=== PATIENT | male | born 1965 | race Caucasian/White ===

== ENCOUNTER 2019-06-23 11:51 | Inpatient (IN) | payer MEDICAID ==
[~2019-06-23] VITALS: Ht 170.2 cm; Wt 36.3 kg
[~2019-06-23 11:51] MED LIST: ALBUTEROL2.5 MG/3 M INH
[2019-06-23] MEDS ORDERED: D5 1/2NS w/KCl 20mEq 1,000 ML IV SCH (12:00)
--- NOTE | 2019-06-23 12:00 | NUR ---
ER Nurse Note: Pt brought in by ambulance 26 from SNF c/o ALOC. Per nursing staff, pt is verbal, follows some commands, RA but is now is on 2L NC and does not follow commands since AM.
[2019-06-23] MEDS ORDERED: SUSTIVA600 MG ORAL (12:06)
[2019-06-23] MEDS ORDERED: BACTRIM DS TAB1 EAC1 ORAL (12:06)
[2019-06-23] MEDS ORDERED: SIMVASTATIN40 MG ORAL (12:06)
[2019-06-23] MEDS ORDERED: COLACE100 MG ORAL (12:06)
[2019-06-23] MEDS ORDERED: ENSURE LIQUID237 ML PO (12:06)
[2019-06-23] MEDS ORDERED: SENNA PLUS 8.61 EACH PO (12:06)
[2019-06-23] MEDS ORDERED: MULTIVITAMINS1 EAC8 ORAL (12:06)
[2019-06-23] MEDS ORDERED: EPIVIR150 MG ORAL (12:06)
[2019-06-23] MEDS ORDERED: ZITHROMAX250 MG ORAL (12:06)
[2019-06-23] MEDS ORDERED: CATAPRES0.1 MG ORAL (12:06)
[2019-06-23] MEDS ORDERED: MAALOX ADVANCE1 EACH PO (12:06)
[2019-06-23] MEDS ORDERED: ZIDOVUDINE300 MG ORAL (12:06)
--- NOTE | 2019-06-23 12:13 | Emergency Room Report ---
History of Present Illness General Chief Complaint: Altered Mental Status Source: Patient, Medical Record Present Illness HPI Patient is a 53-year-old male brought in by EMS after increased altered level of consciousness. He had prior history of HIV disease. 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 Was brought in for evaluation of altered mental status. Patient was sent in from [facility]. He was noted to have DNR status. Allergies: Coded Allergies: No Known Allergies (Unverified , 06/23/19) COVID-19 Screening Contact w/high risk pt: No Recent Travel to affected area: No Experienced COVID-19 symptoms?: No Patient History Past Medical History: see triage record Reviewed Nursing Documentation: PMH: Agreed; PSxH: Agreed Review of Systems All Other Systems: limited - by mental status Physical Exam Vital Signs Date Time Temp Pulse Resp B/P (MAP) Pulse Ox O2 Delivery O2 Flow Rate FiO2 06/23/19 11:42 95.9 92 18 117/80 (92) 95 Room Air General Appearance: alert, Chronically Ill ENT: hearing grossly normal, other - dry mucous membranes Neck: limited range of motion Respiratory: lungs clear, normal breath sounds Cardiovascular #1: normal inspection, normal peripheral pulses Gastrointestinal: normal inspection, soft Musculoskeletal: other - muscular atrophy, generalized weakness, no drift Neurologic: alert, safety 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 Differential diagnosis include was not limited to pneumonia, sepsis, electrolyte abnormality, urinary tract infection, dehydration among others. Because of complexity of patient's case laboratory tests and imaging studies were ordered. Patient was noted to be markedly cachectic and per patient's paperwork is DNR, DNI. Reportedly he is to be hospitalized if IV fluids are necessary. Patient appears to be somewhat dehydrated and was started on IV fluids. Dr. Jorge العلي will be contacted for inpatient rehydration due to panel physician Labs Test 06/23/19 12:30 06/23/19 13:15 White Blood Count 16.5 K/UL (4.8-10.8) Red Blood Count 3.82 M/UL (4.70-6.10) Hemoglobin 14.4 G/DL (14.2-18.0) Hematocrit 41.1 % (42.0-52.0) Mean Corpuscular Volume 108 FL (80-99) Mean Corpuscular Hemoglobin 37.6 PG (27.0-31.0) Mean Corpuscular Hemoglobin Concent 34.9 G/DL (32.0-36.0) Red Cell Distribution Width 13.6 % (11.6-14.8) Platelet Count 316 K/UL (150-450) Mean Platelet Volume 4.6 FL (6.5-10.1) Neutrophils (%) (Auto) % (45.0-75.0) Lymphocytes (%) (Auto) % (20.0-45.0) Monocytes (%) (Auto) % (1.0-10.0) Eosinophils (%) (Auto) % (0.0-3.0) Basophils (%) (Auto) % (0.0-2.0) Sodium Level 165 MMOL/L (136-145) Potassium Level 4.5 MMOL/L (3.5-5.1) Chloride Level 122 MMOL/L (98-107) Carbon Dioxide Level 25 MMOL/L (21-32) Anion Gap 17 mmol/L (5-15) Blood Urea Nitrogen 164 mg/dL (7-18) Creatinine 1.6 MG/DL (0.55-1.30) Estimat Glomerular Filtration Rate 45.1 mL/min (>60) Glucose Level 58 MG/DL (74-106) Calcium Level 8.5 MG/DL (8.5-10.1) Total Bilirubin 0.3 MG/DL (0.2-1.0) Aspartate Amino Transf (AST/SGOT) 127 U/L (15-37) Alanine Aminotransferase (ALT/SGPT) 114 U/L (12-78) Alkaline Phosphatase 162 U/L (46-116) Total Protein 8.9 G/DL (6.4-8.2) Albumin 3.0 G/DL (3.4-5.0) Globulin 5.9 g/dL Albumin/Globulin Ratio 0.5 (1.0-2.7) EKG Diagnostic Results Rate: normal Rhythm: NSR ST Segments: no acute changes Last Vital Signs Date Time Temp Pulse Resp B/P (MAP) Pulse Ox O2 Delivery O2 Flow Rate FiO2 06/23/19 11:42 95.9 92 18 117/80 (57) 95 Room Air Status: unchanged Condition: Stable Satnam Boswell MD Jun 23, 2019 12:13
[2019-06-23] MEDS ORDERED: Folic Acid 1 MG, Magnesium Sulfate 2,000 MG, Multivitamin - 12 Injection 10 ML, Thiamin... IV ONE ×5 (12:15)
[2019-06-23] MEDS ORDERED: cefTRIAXone 1 GM in NS 55 ML IVPB ONE (12:15)
[2019-06-23 12:23] VITALS: BP 117/80
--- NOTE | 2019-06-23 12:34 | NUR ---
ER Nurse Note: Per ER MD, order for Banana Bag canceled. Spoke with pharmacy to cancel the order.
--- NOTE | 2019-06-23 12:50 | NUR ---
ED Nurse Note: Patient taken to CT in [facility].
[2019-06-23 13:12] LABS: HEMATOCRIT 41.1 % (42.0-52.0); HEMOGLOBIN 14.4 G/DL (14.2-18.0); MEAN CORPUSCULAR VOLUME 108 FL (80-99); PLATELET COUNT 316 K/UL (150-450); RED BLOOD COUNT 3.82 M/UL (4.70-6.10); RED CELL DISTRIBUTION WIDTH 13.6 % (11.6-14.8); WHITE BLOOD COUNT 16.5 K/UL (4.8-10.8)
[2019-06-23 13:21] LABS: ALANINE AMINOTRANSFERASE 114 U/L (12-78); ALBUMIN/GLOBULIN RATIO 0.5 (1.0-2.7); ALKALINE PHOSPHATASE 162 U/L (46-116); ANION GAP 17 mmol/L (5-15); ASPARTATE AMINO TRANSFERASE 127 U/L (15-37); BILIRUBIN,TOTAL 0.3 MG/DL (0.2-1.0); BLOOD UREA NITROGEN 164 mg/dL (7-18); CALCIUM 8.5 MG/DL (8.5-10.1); CARBON DIOXIDE 25 MMOL/L (21-32); CHLORIDE 122 MMOL/L (98-107); CREATININE 1.6 MG/DL (0.55-1.30); POTASSIUM 4.5 MMOL/L (3.5-5.1)
[2019-06-23 13:22] LABS: SODIUM 165 MMOL/L (136-145)
[2019-06-23 13:23] LABS: APPEARANCE,URINE SLIGHTLY CLOUDY; BILIRUBIN, URINE NEGATIVE (NEGATIVE); COLOR,URINE PALE YELLOW; GLUCOSE, URINE (UA) NEGATIVE (NEGATIVE); KETONES,URINE NEGATIVE (NEGATIVE); LEUKOCYTE ESTERASE ,URINE NEGATIVE (NEGATIVE); NITRITE,URINE NEGATIVE (NEGATIVE); PH,URINE 5 (4.5-8.0); PROTEIN,URINE NEGATIVE (NEGATIVE); UROBILINOGEN,URINE NORMAL MG/DL (0.0-1.0)
--- NOTE | 2019-06-23 13:31 | Diagnostic Imaging Report ---
Indications: Altered level of consciousness Technique: Spiral acquisitions obtained through the brain. Angled axial and coronal 5 x 5 mm slices were reconstructed. Total dose length product 938 mGycm. CTDI vol(s) 53 mGy. Dose reduction achieved using automated exposure control Comparison: None. Findings: There is marked cerebral cortical and central volume loss. There is periventricular deep white matter low-attenuation. Otherwise normal mensah-white differentiation. No acute intracranial hemorrhage or edema. No mass effect nor midline shift. There is atrophy and calcification of the right optic globe and lens. The calvarium is intact. Visualized sinuses are unremarkable. The mastoids are clear. Impression: Marked involutional changes, advanced for age, as described. Negative for acute intracranial bleed or mass effect Atrophy and calcification of the right optic globe The CT scanner at [facility] is accredited by the [employer] and the scans are performed using protocols designed to limit radiation exposure to as low as reasonably achievable to attain images of sufficient resolution adequate for diagnostic evaluation.
--- NOTE | 2019-06-23 13:34 | Diagnostic Imaging Report ---
Indication: Shortness of Technique: One view of the chest Comparison: none Findings: Definite acute infiltrates, effusions, or congestion. Normal heart size. There is an old healed fracture deformity of the left posterior seventh rib. There is considerable bowel gas Impression: No acute process
[2019-06-23 13:41] VITALS: BP 116/76
--- NOTE | 2019-06-23 13:43 | NUR ---
ER Nurse Note: Urine and blood sent; no signs of distress. Pt infusing fluid and antibiotics. Pt follows commands, non verbal. Pt on 4L NC at 96% O2, VSS. Skin dry and cracked, pt is contracted. Pt incontenent. All safety measures met; will continue to montior.
[2019-06-23] MEDS ORDERED: Folic Acid 1 MG, Magnesium Sulfate 2,000 MG, Multivitamin - 12 Injection 10 ML in Sodiu... IV ONE (14:00)
[2019-06-23 15:36] VITALS: BP 120/58
--- NOTE | 2019-06-23 15:39 | NUR ---
ER Nurse Note: Second IV established; repeat CMP drawn and sent to lab. LT AC 22 gauge infusing D5 1/5 NS with K. Pt on 4L NC, VSS. No signs of distress. Skin breakdown noted on LT hip; pictures taken. CRE, VRE, MRSA swabs completed. Pt kept clean and dry. All orders competed per ERMD orders. Per ERMD, Banana Bag not administered. All safety measures met; will continue to montior.
--- NOTE | 2019-06-23 16:44 | NUR ---
ER Nurse Note: Gave report to JANE Wilcox in [place] for continuity of care.
--- NOTE | 2019-06-23 16:45 | NUR ---
NURSE NOTES: received report from JANIA/JANE Dixon.
[2019-06-23 16:46] VITALS: BP 102/64
[2019-06-23 16:56] LABS: ALANINE AMINOTRANSFERASE 103 U/L (12-78); ALBUMIN 2.6 G/DL (3.4-5.0); ALBUMIN/GLOBULIN RATIO 0.5 (1.0-2.7); ALKALINE PHOSPHATASE 143 U/L (46-116); ANION GAP 16 mmol/L (5-15); ASPARTATE AMINO TRANSFERASE 113 U/L (15-37); BILIRUBIN,TOTAL 0.2 MG/DL (0.2-1.0); BLOOD UREA NITROGEN 188 mg/dL (7-18); CALCIUM 7.8 MG/DL (8.5-10.1); CARBON DIOXIDE 25 MMOL/L (21-32); CHLORIDE 121 MMOL/L (98-107); CREATININE 1.7 MG/DL (0.55-1.30); POTASSIUM 5.1 MMOL/L (3.5-5.1)
[2019-06-23 16:58] LABS: SODIUM 161 MMOL/L (136-145)
--- NOTE | 2019-06-23 17:00 | NUR ---
NURSE NOTES: patient was admitted to room 402-[address] Severiano wheeler. patient alert. limited verbal communication. follow command.no respiratory distress noted on 4L via NC. no facial grimacing during care. IV on LAC 22g and RFA 18g intact. running D51/2ns kcl @100/hr. incontinent. skin assessment done. Lt hip redness. severe dry skin on general body. bed in the lowest position and locked. call light within reach. alarm on. will continue to provide plan of care.
--- NOTE | 2019-06-23 18:14 | History and Physical Report ---
DATE OF ADMISSION: 06/23/2019 CHIEF COMPLAINT AND REASON FOR HOSPITALIZATION: The patient is admitted from the [facility] with severe dehydration and hypernatremia. HISTORY OF PRESENT ILLNESS: The patient unable to provide history. He had severe HIV, eating and drinking poorly. Apparently, there was a hospice. The patient came for severe dehydration and lethargy. He is unable to provide history. MEDICATIONS: From the [facility] include albuterol inhalation p.r.n., Bactrim DS daily, Catapres 0.1 every 6 hours p.r.n., Colace 100 mg daily, Diflucan 200 mg daily for 7 days and apparently completed, Dulcolax suppository p.r.n., Epivir 150 every 12 hours, Fleet Enema p.r.n., Maalox p.r.n., milk of magnesia p.r.n., multivitamin with mineral daily, senna two tablets at bedtime, Sustiva 600 mg at bedtime, Tylenol p.r.n., zidovudine 300 mg two times a day, Zithromax 300 mg on Friday and only, Zocor 40 mg at bedtime. SYSTEM REVIEW: The patient is unable. PHYSICAL EXAMINATION: GENERAL: The patient is seen in the ER. He is severely cachetic. VITAL SIGNS: Temperature 96.3, pulse 63, respirations 14, blood pressure 116/76, pulse oximetry 96%. HEAD, EYES, EARS, NOSE, AND THROAT: There is frontal wasting. Sclerae nonicteric. Oral mucosa dry. NECK: No adenopathy. LUNGS: Clear. HEART: Regular rhythm. No murmur. ABDOMEN: Soft. No organomegaly. EXTREMITIES: No edema. No severe muscle wasting. NEUROLOGIC: He is awake, not really talking. He pushes the examiner away, like he does not want to be bothered. He seems to be moving all extremities with no focal weakness. PERTINENT LABORATORY DATA: White count 16.5, hemoglobin is 14.4. Sodium 165, potassium 4.5, BUN 164, creatinine 1.6, glucose 58. Lactic acid 1.1. Elevated liver enzymes. Troponin is normal. Urinalysis 0 to 2 white cells per high-power field. IMPRESSION: 1. Severe dehydration. 2. Severe protein-calorie malnutrition. 3. HIV. 4. DNR directive. PLAN: Hypotonic hydration. The patient has a poor prognosis. At this time, I do not know if there are any decision makers regarding hospice and further care. So, we will hydrate and try to get him back to the ECF. Jorge العلي M.D. DR: ALEX JOB#: [id number] CC:
--- NOTE | 2019-06-23 18:39 | NUR ---
NURSE NOTES: called Severiano Conley for admission order. MD will call back soon.
--- NOTE | 2019-06-23 19:40 | NUR ---
NURSE NOTES: Received patient in bed. Awake, nonverbal. No signs of pain noted at this time. On 4 lpm via NC. IV in the Right forearm and Left AC noted, intact. IVF infusing well. Sitting in semi-fowlers, bed rails up x2, bed locked, bed alarm on, ricco light within reach.
--- NOTE | 2019-06-23 19:45 | NUR ---
HAND-OFF: Report given to Sina Lockwood RN .
[2019-06-23 20:00] VITALS: BP 119/55
[2019-06-23] MEDS: D5 1/2NS w/KCl 20mEq 1,000 ML IV SCH (20:31)
[2019-06-24] VITALS: BP 103/72
[2019-06-24] MEDS: D5 1/2NS w/KCl 20mEq 1,000 ML IV SCH ×4 (01:51→20:22)
[2019-06-24 04:00] VITALS: BP 125/83
[2019-06-24 07:12] LABS: ANION GAP 14 mmol/L (5-15); CALCIUM 7.7 MG/DL (8.5-10.1); CARBON DIOXIDE 22 MMOL/L (21-32); CHLORIDE 124 MMOL/L (98-107); CREATININE 1.5 MG/DL (0.55-1.30); POTASSIUM 4.9 MMOL/L (3.5-5.1)
[2019-06-24 07:19] LABS: BLOOD UREA NITROGEN 182 mg/dL (7-18)
[2019-06-24 07:32] LABS: SODIUM 161 MMOL/L (136-145)
--- NOTE | 2019-06-24 07:43 | NUR ---
HAND-OFF: Report given to Rebekah LARA. Addendum: 06/24/19 at 0745 by Sina Lockwood RN Sodium level 161 endorsed to next shift JANE.
--- NOTE | 2019-06-24 07:54 | NUR ---
NURSE NOTES: Patient non-verbal; on Nasal cannula 4 Liters, no sing of distress and shortness of breath; no sing of chest pain; IV Right-Hand and Right For-Arm flushes well; side rails up x2, breaks engaged, bed at lowest position, bed alarm on; will keep monitoring.
[2019-06-24 08:00] VITALS: BP 112/72
--- NOTE | 2019-06-24 10:26 | NUR ---
RD ASSESSMENT & RECOMMENDATIONS SEE CARE ACTIVITY FOR COMPLETE ASSESSMENT DAILY ESTIMATED NEEDS: Needs based on Underweight, HIV, wound 34kg 30-40 kcals/kg 6860-4269 total kcals 1.25-2 g protein/kg 43-68 g total protein Fluid per MD NUTRITION DIAGNOSIS: Increased kcal and pro needs r/t underweight status, severe wasting , HIV as evidenced by BMI underweight per guidelines, pt is 50% of ideal body weight w/ full thickness L hip wound. CURRENT DIET: Npo pending [employer] eval PO DIET RECOMMENDATIONS---->>>> Liberalized REGULAR diet / texture per [employer] ADDITIONAL RECOMMENDATIONS: 1) W/ oral diet add ensure enlive tid w/ meals snacks in b/w meals 2) Wound care: add SALOME BID + vit C 250mg BID + MVI w/ min F/up w/ WC eval 3) Monitor hydration status, now on IVF -> Monitor renal labs, need for Nepro vs Ensure 4) Per POLST, no artificial feeds
[2019-06-24 12:00] VITALS: BP 119/69
--- NOTE | 2019-06-24 13:21 | General Progress Note ---
Progress Note Progress Note Bioethics Committee We are asked to comment on whether palliative care is appropriate for this 53 year old with cachexia and advanced AIDS. The patient has signed a POLST that indicates that he does not want artificial prolongation of life with CPR, ventilation, tube feeding. It is not co-signed by a physician. The patient who was admitted for dehydration requests transfer back to the SNF at this time. He is reported by social service coordinator to be competent to make that decisioin. Despite the lack of a physician signature on the POLST it appears that this patient has elected comfort care and that palliattive care approach is warranted and appropriate. Walt Lima M.D. Walt Lima MD Jun 24, 2019 13:20
--- NOTE | 2019-06-24 13:39 | General Progress Note ---
Assessment/Plan Problem List: (1) HIV (human immunodeficiency virus infection) ICD Codes: B20 - Human immunodeficiency virus [HIV] disease SNOMED: 37641858 (2) Severe malnutrition ICD Codes: E43 - Unspecified severe protein-calorie malnutrition SNOMED: 44841899 (3) Dehydration ICD Codes: E86.0 - Dehydration SNOMED: 43755616 (4) Hypernatremia ICD Codes: E87.0 - Hyperosmolality and hypernatremia SNOMED: 570279674 (5) Altered mental status ICD Codes: R41.82 - Altered mental status, unspecified SNOMED: 935275677 Status Narrative continue hydration Subjective ROS Limited/Unobtainable: Yes Allergies: Coded Allergies: No Known Allergies (Unverified , 06/23/19) Objective Last 24 Hour Vital Signs Date Time Temp Pulse Resp B/P (MAP) Pulse Ox O2 Delivery O2 Flow Rate FiO2 06/24/19 12:00 96.0 59 18 119/69 (86) 100 06/24/19 09:00 Nasal Cannula 4.0 06/24/19 08:00 97.0 60 17 112/72 (85) 100 06/24/19 04:00 98.8 63 14 125/83 (97) 98 06/24/19 00:00 98.4 65 18 103/72 (82) 98 06/23/19 21:00 Nasal Cannula 4.0 06/23/19 20:00 98.5 67 18 119/55 (76) 99 06/23/19 17:56 Nasal Cannula 4.0 06/23/19 16:50 97.3 70 16 102/64 96 Nasal Cannula 4.0 06/23/19 16:46 97.3 70 16 102/64 96 Nasal Cannula 4.0 06/23/19 15:36 97.5 75 16 120/58 97 Nasal Cannula 4.0 06/23/19 13:41 96.3 63 14 116/76 96 Nasal Cannula 4.0 Intake and Output 06/23/19 06/24/19 19:00 07:00 Intake Total 730 ml 1750 ml Balance 730 ml 1750 ml Intake IV Total 730 ml 1750 ml # Voids 1 3 Laboratory Tests 06/23/19 16:14: Sodium Level 161*H, Potassium Level 5.1, Chloride Level 121H, Carbon Dioxide Level 25, Anion Gap 16H, Blood Urea Nitrogen 188H, Creatinine 1.7H, Estimat Glomerular Filtration Rate 42.1, Glucose Level 185#H, Calcium Level 7.8L, Total Bilirubin 0.2, Aspartate Amino Transf (AST/SGOT) 113H, Alanine Aminotransferase (ALT/SGPT) 103H, Alkaline Phosphatase 143H, Total Protein 7.9, Albumin 2.6L, Globulin 5.3, Albumin/Globulin Ratio 0.5L 06/24/19 05:35: Sodium Level 161*H, Potassium Level 4.9, Chloride Level 124H, Carbon Dioxide Level 22, Anion Gap 14, Blood Urea Nitrogen 182H, Creatinine 1.5H, Estimat Glomerular Filtration Rate 48.6, Glucose Level 113H, Calcium Level 7.7L Height (Feet): 5 Height (Inches): 7.00 Weight (Pounds): 80 General Appearance: confused, cachetic EENT: other - frontal wasting Neck: normal alignment Cardiovascular: normal rate Respiratory/Chest: lungs clear Abdomen: non tender, soft Edema: no edema noted Arm (L), no edema noted Arm (R), no edema noted Leg (L), no edema noted Leg (R), no edema noted Pedal (L), no edema noted Pedal (R), no edema noted Generalized Skin: other - poor turgor Jorge العلي MD Jun 24, 2019 13:39
--- NOTE | 2019-06-24 14:03 | NUR ---
NOTES: REFERRED FOR SWALLOW EVALUATION BY DR NELSON, SEE FULL REPORT IN CARE ACTIVITY SECTION. DYSPHAGIA AND ASPIRATION RISK FACTORS FOR THIS 53 Y.O.M.: ACUTE ISSUES: SEVERE DEHYDRATION AND PROTEIN-CALORIE MALNUTRITION, REDUCED PO INTAKE, HYPERNATREMIA, R/O PNA (NEGATIVE ON CXR AND LUNGS CHECK) RESP RATE 17 BPM AND SP02 100 ON 4 LITERS OF 02 NC. AMS (CT HEAD SCAN 06/23/19 NEGATIVE ACUTE ISSUES, MARKED INVOLUTIONAL CHANGES,ADVANCED FOR AGE ATROPHY AND CALCIFICATION OF RIGHT OPTIC GLOBE. H/O DYSPHAGIA, PNEUMONIA, ADULT FTT AND CACHEXIA, DEMENTIA, HIV DZ, GENERAL WEAKNESS, PTOSIS RIGHT EYELID AND MONOCULAR ESOTROPIA,HYPERCHOLESTEROLEMIA RELEVANT MEDS: ALBUTEROL, HIV MEDS PER POLST,DNR AND NO TUBE FEEDINGS. [facility] SNF[facility] SO[facility] CHOP[facility] DI[facility] AND THIN LIQUIDS. NONFAT MILD 3 TIMES PER DAY FOR 3 MONTHS BETWEEN MEALS AND MAY GO OFF DIET ON SPECIAL OCCASIONS. SEEING ST FOR SKILLED SERVICES LIKELY REGARDING DYSPHAGIA. ALERT AND ABLE TO COMMUNICATE WITH HEAD NODS ? UNRELIABLE AT TIMES. VERY DYSARTHRIC AND DYSPHONIC (REDUCED AND POOR SPEECH INTELLIGIBILITY AND BREATHY VOICE REDUCED IN LOUDNESS). TRIES TO POINT WITH HIS RIGHT INDEX FINGER. ASSISTED WITH SETTING UP SUCTION WITH RN (AND GETTING EQUIPMENT ON OTHER FLOORS). INITIAL IMPRESSION: S/S OF A SIGNIFICANT ORAL PREP AND OROPHARYNGEAL DYSPHAGIA WITH INCREASED OVERALL TRANSIT TIMES WITH ALL CONSISTENCIES GIVEN (NECTAR THICK LIQUIDS, PUREED) VERY SLOW TONGUE MOVEMENTS WITH REDUCED PROTRUSION (TO LOWER LIP, NO ELEVATION) AND SPEED. VERY POOR RESISTANCE FOR STRENGTH TESTING. DID NOT RETRACT LIPS TO COMMAND, AND HAS POOR LIP CLOSURE WITH TSP (CUP NOT ATTEMPTED AND COULD NOT SUCK FROM STRAW). LOWER LIP TENDS TO PROTRUDE FORWARD AND DOWN WHICH CAUSES ORAL SPILLAGE. HAS POOR AND MISSING DENTITION AND AN UNDERBITE. COUGH WEAK (REFLEXIVE AND VOLITIONAL), VOICE BREATHY, SPEECH VERY DYSARTHRIC ON 4 LITERS 02 VIA NC, RESP RATE 14-18 AND SP02 98-100 STABLE WITH PO INTAKE. GIVEN TSP NECTAR THICK LIQUID WATER, HAD MIN ORAL SPILLAGE, TOOK 3-5 SECONDS TO SWALLOW, HAD POSSIBLE ASPIRATION, COUGHED AFTER SWALLOW (WEAK LARYNGEAL ELEVATION), MIN ORAL RESIDUE ANTERIOR SULCI. GIVEN 1/2 TSP NECTAR THICK LIQUIDS WATER, HAD MIN ORAL SPILLAGE ANTERIORLY, TOOK 3-5 SECONDS BEFORE SWALLOW TRIGGERED, NO OVERT ASPIRATION, NO ORAL RESIDUE. GIVEN 1/2 TSP PUREED TOOK 6-7 SECONDS BEFORE SWALLOW TRIGGERED, NO COUGH BUT NEEDED MILD AMOUNTS OF RESIDUE SUCTIONED OUT OF BACK OF THROAT AND BILATERAL CHEEKS. HIGH RISK FOR SILENT ASPIRATION AND VERY SLOW AND POOR INTAKE. RECOMMENDATIONS: CONSIDER COMPLETING A MODIFIED BARIUM SWALLOW STUDY (MBSS) TO FURTHER ASSESS SWALLOW,DETERMINE SILENT ASPIRATION RISK AND ETIOLOGY, AND ATTEMPT TRIAL TX TECNNIQUES. SINCE PATIENT'S POLST STATES NO TUBE FEEDINGS AND HE WANTS TO EAT/DRINK BY MOUTH FOR QUALITY OF LIFE PURPOSES, CONSIDER INITIATING A LIQUIFIED PUREED LIKE NECTAR THICK SOUP CONSISTENCY AND NECTAR THICK LIQUIDS (1/2 TSP ONLY) USING STRICT ASPIRATION PRECAUTIONS AND 1 TO [address] DIET TYPE JONE[address] SEND ENSURE ENLIVE TID UNTIL RD REPORT COMPLETED. CRUSH CRUSHABLE MEDS AND MAKE NECTAR THICK SOUP CONSISTENCY. SKILLED DYSPHAGIA MANAGEMENT AND TX AND COG-COM EVAL/TX FOR COMMUNICATION TIPS (GIVEN HIS SIGNIFICANT DYSPHONIA AND DYSARTHRIA). CONSIDER ENT CHECK VOCAL FOLDS (BREATHY VOICE QUALITY ? IF HE HAS A SMOKING HX). EDUCATED/TRAINED RN/TIRE SPOTTER IN POSTED ASPIRATION PRECAUTIONS. Addendum: 06/24/19 at 1407 by BEREKET KEITA ENTERPRISE APPLICATION ARCHITECT CORRECTION FROM ABOVE NOTE ON RD PER RD NOTE LIBERALIZE DIET TO REGULAR TYPE AND SEND GLUCERNA TID. PATIENT WAS ON JONE AT [facility] Addendum: 06/24/19 at 1409 by BEREKET KEITA ENTERPRISE APPLICATION ARCHITECT ORAL CARE AND SUCTION PRN DURING MEALS 03/25 TSP ONLY Addendum: 06/24/19 at 1412 by BEREKET KEITA ENTERPRISE APPLICATION ARCHITECT LUNGS CLEAR (NOT CHECK)
--- NOTE | 2019-06-24 14:37 | NUR ---
ANIMAL SCIENTIST NOTE SW received the bioethics consult for palliative care. SW met w/ pt and attempted to obtain information. Pt appears to be underweight, alert and very limited, almost non-verbal. SW spoke w/ SW Samantha from [facility] [phone] that pt has been staying at [facility] since 2001. Pt has been self-decision maker, no family contact information and his friends made a few visits while pt residing at SNF. Ada did not have friend's contact information. The copy of POLST is placed in the chart. POLST form was signed by pt on 06/15/2019. Pt reports he has two adult daughters named Aditi aged 29 and Jazmin, unknown age but younger than Aditi. Pt does not recall contact numbers but pt does not want this SW to contact his daughters in regards to his tx/care. SW was unable to find his daughters' contact information. Pt was able to nod his head, yes or no, and express himself in writing, that he wants to return [facility] today. SW explained pt that MD will need to clear him medically in order for him to return. Pt nodded. SW consulted and relayed all information to Dr. Lima.
[2019-06-24 16:00] VITALS: BP 113/73
--- NOTE | 2019-06-24 16:18 | NUR ---
CASE MANAGEMENT: INITIAL REVIEW 53YR OLD MALE BIBA FROM [facility] CC: AMS PMH: HIV, DEMENTIA, BLINDNESS, DNR STATUS SI:DEHYDRATION . HYPERNATREMIA . FELISHA . 95.9 92 18 117/80 95% ON RA WBC 16.5 NA+ 165 CL-122 ANION GAP 17 BUN 164 CREAT 1.6 BG 58 AST/ALT 127/114 ALKP 162 IS: IV ROCEPHIN X1 IV D5@100ML/HR X1 HEAT CT- Atrophy and calcification of the right optic globe; Marked involutional changes, advanced for age, CHEST X-RAY- NO ACUTE PROCESS \: 4E MED SURG UNIT DCP: [facility] CASE MANAGEMENT: REVIEW 06/24/19 SI:HIV . DEHYDRATION . HYPERNATREMIA . SEVERE MALNUTRITION 96.0 59 18 119/69 100% ON 4L NA+ 161 CL-124 BUN 182 CREAT 1.5 BG 113 IS: IV D5@75ML/HR \: 4E MED SURG UNIT DCP: [facility] PLAN: WEAN O2 START REG DIET SPEECH EVAL DNR STATUS
--- NOTE | 2019-06-24 19:27 | NUR ---
HAND-OFF: Report given to JANE Lockwood.
--- NOTE | 2019-06-24 19:30 | NUR ---
NURSE NOTES: Received patient in bed. Awake, Alert x1. Nonverbal, signals with hands to communicate. NC running at 4 lpm. IV in the Right upper arm intact, running IVF well. Sitting in high-fowlers, bed rails up x2, bed locked, bed at the lowest position, call light within reach.
[2019-06-24 20:00] VITALS: BP 123/67
[2019-06-25] VITALS: BP 123/67
[2019-06-25] MEDS: D5 1/2NS w/KCl 20mEq 1,000 ML IV SCH ×5 (00:36→23:32)
[2019-06-25 04:00] VITALS: BP 148/69
--- NOTE | 2019-06-25 07:00 | NUR ---
NURSE NOTES: Left message with Dr. العلي's office to report positive MRSA nares culture. Addendum: 06/25/19 at 0720 by Sina Lockwood RN Patient placed on contact isolation.
[2019-06-25 07:06] LABS: ANION GAP 10 mmol/L (5-15); BLOOD UREA NITROGEN 141 mg/dL (7-18); CALCIUM 7.3 MG/DL (8.5-10.1); CARBON DIOXIDE 23 MMOL/L (21-32); CHLORIDE 129 MMOL/L (98-107); CREATININE 1.2 MG/DL (0.55-1.30); POTASSIUM 4.4 MMOL/L (3.5-5.1)
--- NOTE | 2019-06-25 07:19 | NUR ---
HAND-OFF: Report given to Rebekah LARA. Endorsed on positive MRSA nares culture.
[2019-06-25 07:21] LABS: SODIUM 163 MMOL/L (136-145)
--- NOTE | 2019-06-25 07:44 | NUR ---
NURSE NOTES: Patient awake, alert x2; on Nasal Cannula 4 Liters, no sing of distress and shortness of breath; no sing of chest pain; IV line runs D51/2NS w/Kcl 20mEq 175cc running; side rials up x2, breaks engaged, bed at lowest position, bed alarm on; call light within reach; will keep monitoring;
[2019-06-25 08:00] VITALS: BP 106/73
--- NOTE | 2019-06-25 11:03 | NUR ---
NURSE NOTES: MD العلي is griffin of patient's Na 163 level and patient's positive for MRSA-Nares;
--- NOTE | 2019-06-25 11:28 | General Progress Note ---
Assessment/Plan Problem List: (1) HIV (human immunodeficiency virus infection) ICD Codes: B20 - Human immunodeficiency virus [HIV] disease SNOMED: 85035835 (2) Severe malnutrition ICD Codes: E43 - Unspecified severe protein-calorie malnutrition SNOMED: 89691945 (3) Dehydration ICD Codes: E86.0 - Dehydration SNOMED: 98482446 (4) Hypernatremia ICD Codes: E87.0 - Hyperosmolality and hypernatremia SNOMED: 751537205 (5) Altered mental status ICD Codes: R41.82 - Altered mental status, unspecified SNOMED: 929388528 Assessment/Plan: poor prognosis, hydrate Subjective ROS Limited/Unobtainable: Yes Allergies: Coded Allergies: No Known Allergies (Unverified , 06/23/19) Objective Last 24 Hour Vital Signs Date Time Temp Pulse Resp B/P (MAP) Pulse Ox O2 Delivery O2 Flow Rate FiO2 06/25/19 09:00 Nasal Cannula 4.0 06/25/19 08:00 98.9 83 17 106/73 (84) 96 06/25/19 04:00 98.4 65 20 148/69 (95) 97 06/25/19 00:00 97.4 64 20 123/67 (85) 99 06/24/19 21:00 Nasal Cannula 4.0 06/24/19 20:00 97.4 64 20 123/67 (85) 99 06/24/19 16:00 97.0 68 17 113/73 (86) 100 06/24/19 12:00 96.0 59 18 119/69 (86) 100 Intake and Output 06/24/19 06/25/19 19:00 07:00 Intake Total 1625 ml 2590 ml Balance 1625 ml 2590 ml Intake Oral 50 ml 840 ml IV Total 1575 ml 1750 ml # Voids 2 3 # Bowel Movements 2 Laboratory Tests 06/25/19 05:30: Sodium Level 163*H, Potassium Level 4.4, Chloride Level 129H, Carbon Dioxide Level 23, Anion Gap 10, Blood Urea Nitrogen 141H, Creatinine 1.2, Estimat Glomerular Filtration Rate > 60, Glucose Level 153H, Calcium Level 7.3L Height (Feet): 5 Height (Inches): 7.00 Weight (Pounds): 80 General Appearance: confused, cachetic EENT: other - frontal wasting, dry mouth Neck: normal alignment Cardiovascular: regular rhythm Respiratory/Chest: lungs clear Abdomen: non tender Edema: no edema noted Arm (L), no edema noted Arm (R), no edema noted Leg (L), no edema noted Leg (R), no edema noted Pedal (L), no edema noted Pedal (R), no edema noted Generalized Skin: other - t 2 sacral Jorge العلي MD Jun 25, 2019 11:27
--- NOTE | 2019-06-25 11:50 | NUR ---
*-*DISCHARGE PLANNING*-* PATIENT HAS BEEN REFERRED BACK: [facility] P: [phone] F: [phone] ~~~WAITING FOR ACCEPTANCE~~~~~
[2019-06-25 12:00] VITALS: BP 110/79
--- NOTE | 2019-06-25 12:20 | NUR ---
CASE MANAGEMENT:REVIEW SI;HIV. MALNUTRITION. ALTERED MENTAL STATUS. DEHYDRATION. HYPERNATREMIA. 98.9 83 20 148/63 96% 4L NC NA 163 BUN 141 CA 7.3 IS;IVF D5 @ 175 ML/HR MED SURG STATUS DCP;FROM [facility];ANTICIPATED DISCHARGE TO SNF ON 06/26/19
--- NOTE | 2019-06-25 15:06 | NUR ---
*-*DISCHARGE PLANNING*-* PATIENT HAS BEEN ACCEPTED AND WILL BE DISCHARGED BACK TO, [facility] ON ANTICIPATED DISCHARGE DATE 06/26/2019. NURSE TO NURSE REPORT P: [phone] # 117.[facility] TRANSP[facility] SET FOR WILL CALL, S/W LEANN [phone] NURSE TO ACTIVATE WILL CALL.
--- NOTE | 2019-06-25 15:53 | NUR ---
NURSE NOTES:WOUND CARE NOTES:Pt cachetic and presented on admission with pressure injuries to L trochanter and L ischium. Pt also noted to have severe Hyperkeratosis of both hands and both feet. Reabsorbing Blood Blister L femoral head(L)4cm x (W)3.3cm. Base of injury dry and necrotic. Resolving pressure injury L trochanteric.Mobridge epithelial at base of wound. No odor or exudate noted. (L)1.5cm x (W)3cm. Resolving [pressure injury L ischium. Dry,pink epithelial at base of wound. Edges adherent and dry. No further skin breakdown periwound.(L)2.5cm x (W)1.5cm. Non-blanchable erythema without induration noted to sacrum. Severe Hyperkeratosis of both hands . Pt declined to have hands soaked or treated with moisturizing lotion. Both feet soaked with tepid water . Layers of thickened and scaled skin removed from both heels and plantar aspects of both feet including metatarsals. At base of both feet and heels, skin raw with small amt bleeding noted. Both lower extremities and feet moisturized with emollient based lotions. Betadine applied to raw areas of both feet . Each feet covered with ABD pads and wrapped with Kerlix. Pt identified to be at very high risks for developing pressure injuries secondary to protruding bony prominences. Cavilon Skin Barrier applied to each bony prominences of shoulders,both elbows, Spine, Both hips/trochanters, both ischial tuberosities.Medial aspects of both knees. In addition, each aforementioned areas covered with Optifoam drsgs to minimize friction and pressure. Tx.Plan:Apply Moisture Barrier Paste to R femoral head, R trochanter,R ischium. Cover with Optifoam drsg. Change every 3 days and prn. Apply Moisture Barrier Paste to Sacrum. Cover with Optifoam Drsg. Change every 3 days and prn. Moisturize both lower ext and feet with Phytoplex Skin Nourishing lotion. Apply Betadine to raw skin both heels and plantar aspects of both feet.Cover each feet and heels with ABD Pads. Wrap with Kerlix. Change every 3 days and prn. Apply Cavilon Skin Barrier and cover Bony prominences with Optifoam drsgs . Change every 7 days and prn. Reposition at least every 2hours or as tolerated. Off-load heels with pillow. Place pillow between knees. APM/LAWANDA Mattress overlay.
[2019-06-25 16:00] VITALS: BP 118/76
--- NOTE | 2019-06-25 19:10 | NUR ---
NURSE NOTES: Received patient in bed. Awake, alert x1. Patient is non-verbal. Signals with hands. On 4 lpm via NC. Denies pain at this time. Side rails up x2, sitting in semi-fowlers, bed locked, bed alarm on, bed at the lowest position, call light within reach.
--- NOTE | 2019-06-25 19:39 | NUR ---
HAND-OFF: Report given to JANE Lockwood.Endorsed to the incoming nurse that patient is gonna be discharge tomorrow. 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
[2019-06-25 20:00] VITALS: BP 116/78
[2019-06-26] VITALS: BP 127/80
[2019-06-26 04:00] VITALS: BP 115/21
[2019-06-26] MEDS: D5 1/2NS w/KCl 20mEq 1,000 ML IV SCH ×2 (05:14→11:54)
[2019-06-26 06:54] LABS: ANION GAP 10 mmol/L (5-15); BLOOD UREA NITROGEN 76 mg/dL (7-18); CALCIUM 7.6 MG/DL (8.5-10.1); CARBON DIOXIDE 25 MMOL/L (21-32); CHLORIDE 130 MMOL/L (98-107); CREATININE 0.8 MG/DL (0.55-1.30); POTASSIUM 4.2 MMOL/L (3.5-5.1)
[2019-06-26 06:59] LABS: SODIUM 165 MMOL/L (136-145)
--- NOTE | 2019-06-26 07:20 | NUR ---
HAND-OFF: Report given to Dick LARA. Sodium level endorsed.
[2019-06-26 08:00] VITALS: BP 110/50
--- NOTE | 2019-06-26 11:20 | NUR ---
NURSE NOTES: PT AXOX1, CALM, RESTING IN BED. NONVERBAL. IN HIGH LORA'S POSITION WITH HOB ELEVATED. BED IN LOWEST POSITION WITH BEDSIDE RAILS X3 RAISED. BED ALARM ON. RIGHT UPPER ARM AND FOREARM IV ACCESS ASYMPTOMATIC, PATENT AND INTACT. WILL CONTINUE TO MONITOR.
[2019-06-26 12:00] VITALS: BP 117/52
[2019-06-26] MEDS: Potassium Chloride 10 MEQ in D5W 1000ml 1,000 ML IV SCH ×2 (15:31→20:59)
[2019-06-26 16:00] VITALS: BP 120/60
--- NOTE | 2019-06-26 16:13 | General Progress Note ---
Assessment/Plan Problem List: (1) HIV (human immunodeficiency virus infection) ICD Codes: B20 - Human immunodeficiency virus [HIV] disease SNOMED: 75391413 (2) Severe malnutrition ICD Codes: E43 - Unspecified severe protein-calorie malnutrition SNOMED: 33661197 (3) Dehydration ICD Codes: E86.0 - Dehydration SNOMED: 03386931 (4) Hypernatremia ICD Codes: E87.0 - Hyperosmolality and hypernatremia SNOMED: 055248219 (5) Altered mental status ICD Codes: R41.82 - Altered mental status, unspecified SNOMED: 295182162 Assessment/Plan: poor prognosis, hydrate lab trend better, change to D5W Subjective ROS Limited/Unobtainable: Yes Allergies: Coded Allergies: No Known Allergies (Unverified , 06/23/19) Objective Last 24 Hour Vital Signs Date Time Temp Pulse Resp B/P (MAP) Pulse Ox O2 Delivery O2 Flow Rate FiO2 06/26/19 12:00 98.3 92 20 117/52 (73) 98 06/26/19 09:00 Nasal Cannula 4.0 06/26/19 08:00 98.0 89 19 110/50 (70) 98 06/26/19 04:00 98.6 82 20 115/21 (52) 98 06/26/19 00:00 98.2 86 20 127/80 (96) 97 06/25/19 21:00 Nasal Cannula 4.0 06/25/19 20:00 97.9 73 20 116/78 (91) 94 Intake and Output 06/25/19 06/26/19 19:00 07:00 Intake Total 1750 ml 1225 ml Balance 1750 ml 1225 ml IV Total 1750 ml 1225 ml # Voids 3 # Bowel Movements 3 Laboratory Tests 06/26/19 06:10: Sodium Level 165*H, Potassium Level 4.2, Chloride Level 130H, Carbon Dioxide Level 25, Anion Gap 10, Blood Urea Nitrogen 76H, Creatinine 0.8, Estimat Glomerular Filtration Rate > 60, Glucose Level 109H, Calcium Level 7.6L Height (Feet): 5 Height (Inches): 7.00 Weight (Pounds): 80 General Appearance: alert, confused EENT: other - dry mouth Neck: normal alignment Cardiovascular: normal rate Respiratory/Chest: normal breath sounds Abdomen: soft Edema: no edema noted Arm (L), no edema noted Arm (R), no edema noted Leg (L), no edema noted Leg (R), no edema noted Pedal (L), no edema noted Pedal (R), no edema noted Generalized Jorge العلي MD Jun 26, 2019 16:13
--- NOTE | 2019-06-26 17:00 | NUR ---
NURSE NOTES: WOUND CARE DONE AT BEDSIDE. PT TOLERATED WELL. WILL CONTINUE TO MONITOR.
--- NOTE | 2019-06-26 19:45 | NUR ---
HAND-OFF: Report given to Vesta IRWIN RN.
[2019-06-26 20:00] VITALS: BP 111/68
[2019-06-27 00:06] VITALS: BP 117/70
[2019-06-27] MEDS: Potassium Chloride 10 MEQ in D5W 1000ml 1,000 ML IV SCH ×4 (02:07→16:23)
[2019-06-27 04:35] VITALS: BP 110/74
--- NOTE | 2019-06-27 06:03 | NUR ---
NURSE NOTES: PT AXOX1, CALM, RESTING IN BED. NONVERBAL. NO S/S DISTRESS NOTED. NO S/S PAIN NOTED PER FLACC SCALE. HOB ELEVATED. BED IN LOWEST POSITION WITH BEDSIDE RAILS X3 RAISED. BED ALARM ON. NO FALLS/INJURY. NO NAUSEA/VOMITING. WOUND DRESSINGS DRY AND INTACT. VITALS STABLE, AFEBRILE. WILL CONTINUE TO MONITOR.
--- NOTE | 2019-06-27 07:30 | NUR ---
HAND-OFF: Report given to CUONG MADISON RN. ENDORSED ALL FALL PREVENTATIVE MEASURES FOR HIGH RISK FOR FALLS.
[2019-06-27 08:00] VITALS: BP 132/53
--- NOTE | 2019-06-27 15:55 | General Progress Note ---
Assessment/Plan Problem List: (1) HIV (human immunodeficiency virus infection) ICD Codes: B20 - Human immunodeficiency virus [HIV] disease SNOMED: 54760919 (2) Severe malnutrition ICD Codes: E43 - Unspecified severe protein-calorie malnutrition SNOMED: 26761915 (3) Dehydration ICD Codes: E86.0 - Dehydration SNOMED: 94983116 (4) Hypernatremia ICD Codes: E87.0 - Hyperosmolality and hypernatremia SNOMED: 063443822 (5) Altered mental status ICD Codes: R41.82 - Altered mental status, unspecified SNOMED: 338503074 Assessment/Plan: poor prognosis, hydrate lab trend better, change to D5W Subjective ROS Limited/Unobtainable: Yes Allergies: Coded Allergies: No Known Allergies (Unverified , 06/23/19) Objective Last 24 Hour Vital Signs Date Time Temp Pulse Resp B/P (MAP) Pulse Ox O2 Delivery O2 Flow Rate FiO2 06/27/19 09:00 Nasal Cannula 4.0 06/27/19 08:00 88.9 73 12 132/53 (79) 94 06/27/19 04:35 96.9 75 20 110/74 (86) 94 06/27/19 00:06 97.0 74 19 117/70 (86) 94 06/26/19 22:16 Nasal Cannula 4.0 06/26/19 20:00 97.0 73 19 111/68 (82) 92 06/26/19 16:00 98.4 89 19 120/60 (80) 97 Intake and Output 06/26/19 06/27/19 19:00 07:00 Intake Total 1475 ml 1800 ml Output Total 600 ml 1000 ml Balance 875 ml 800 ml IV Total 1475 ml 1800 ml Output Urine Total 600 ml 1000 ml # Bowel Movements 1 Height (Feet): 5 Height (Inches): 7.00 Weight (Pounds): 80 General Appearance: confused EENT: other - frontal wasting Cardiovascular: regular rhythm Respiratory/Chest: lungs clear Abdomen: non tender Edema: no edema noted Arm (L), no edema noted Arm (R), no edema noted Leg (L), no edema noted Leg (R), no edema noted Pedal (L), no edema noted Pedal (R), no edema noted Generalized Neurologic: motor weakness, disoriented Jorge العلي MD Jun 27, 2019 15:55
[2019-06-27 16:00] VITALS: BP 47/26
--- NOTE | 2019-06-27 17:36 | NUR ---
NURSE NOTES: PT FOUND IN BED DURING ROUNDING. CHADD PATTON PRONOUNCED TIME OF 1700HRS. CHADD NOTIFIED HOUSE SUP, MISOOK. RN MADE DR NELSON AWARE. NO FAMILY TO CONTACT.
--- NOTE | 2019-06-27 18:17 | NUR ---
NURSE NOTES: RN REPORTED TO [facility]. REFERRAL #[id number]
--- NOTE | 2019-06-27 18:30 | NUR ---
NURSE NOTES: PT WAS BATHED, ALL IV LINES TAKEN OUT. PT'S BODY PLACED IN BODY BAG WITH APPROPRIATE TAGS.
--- NOTE | 2019-06-27 19:37 | NUR ---
HAND-OFF: Report given to Eloisa ARDON RN.
--- NOTE | 2019-06-28 21:14 | Discharge Summary ---
Discharge Summary Discharge Summary _ SUMMARY DATE OF ADMISSION: 06/23/2019 DATE OF EXPIRATION: 06/27/2019 REASON FOR ADMISSION: 53 years old male with past medical history of HIV, dementia, blindness , contracted, [facility] from [facility] with altered level of consciousness. Upon evaluation patient was hypothermic with temperature 95.9. laboratory work-up revealed leukocytosis with WBC 16.5, hemoglobin 14.4, hematocrit 41.1. Sodium 165, potassium 4.5. BUN 164, creatinine 1.6. Glucose 58. AST 127 , ALT 114. Albumin 3.0 . Troponin negative. EKG revealed sinus rhythm no acute ischemic changes. CT of the head revealed marked involutional changes advanced for his age. No evidence of acute intracranial bleeding or mass-effect. Atrophy and calcification of the right optic globe. Chest x-ray demonstrated no acute cardiopulmonary pathology. Urinalysis revealed no evidence of urinary tract infection. Patient noted to be markedly cachectic. Per patient's paperwork with DNR/DNI status. Patient started on IV fluids and admitted for further management. HOSPITAL COURSE: Patient admitted and started on hypotonic IV hydration. Bioethics consult was requested if palliative care appropriate for this patient with cachexia and advanced HIV/AIDS. The patient had POLST indicated that he did not want any artificial propagation of life with CPR, ventilation and tube feeding. Patient requested transfer back to fdc facility. 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 Bioethics concluded, that patient elected comfort care and palliative care approach was warranted and appropriate. IV hydration continued. Prognosis remained poor. Sodium remained high . Renal parameters show improvement BUN from 188 down to 76 and creatinine from 1.7 down to 0.8. Blood culture were negative. Comfort care provided. Patient condition was rapidly deteriorating. Patient pronounced at 17: 00 on 06/27/19. Cause of : cardiopulmonary arrest FINAL DIAGNOSES: Severe dehydration Acute renal failure due to dehydration Severe protein calorie malnutrition HIV/AIDS Hypernatremia Altered mental status Comfort care DNR/DNI status I have been assigned to dictate discharge summary for this account. I was not involved in the patient's management. Jigna Morfin COMPUTATOR Jun 28, 2019 21:14
== END 2019-06-27 17:00 | disposition expired | DRG 890 ==
LOC: EDBD 11:51 → EMR 12:22 → EDBEDREQ 15:12 → 4E 15:47
DX: E86.0 Dehydration (principal); E87.0 Hyperosmolality and hypernatremia; E43 Unspecified severe protein-calorie malnutrition; B20 Human immunodeficiency virus [HIV] disease; Z66 Do not resuscitate; F03.90 Unspecified dementia, unspecified severity, without behavioral disturbance, psychotic disturbance, mood disturbance, and anxiety; N17.9 Acute kidney failure, unspecified; R41.82 Altered mental status, unspecified; Z51.5 Encounter for palliative care; H54.7 Unspecified visual loss; R68.0 Hypothermia, not associated with low environmental temperature; R64 Cachexia; Z68.1 Body mass index [BMI] 19.9 or less, adult
CPT/HCPCS: 36415; 70450; 71045; 80048; 80053; 81001; 83605; 84484; 85007; 85025; 87040; 87081; 96361; 96365; 99285; J7030